=== PATIENT | male | born 1935 | race African-American/Black ===

== ENCOUNTER 2023-10-14 13:05 | Emergency (ER) | payer MEDICARE, OTHER ==
[~2023-10-14] VITALS: Ht 177.8 cm; Wt 108.9 kg
[~2023-10-14 13:05] MED LIST: GABA-534 PO; GLYB5TAB7 PO; INSU100C7 SQ; MECL-118 PO; VALS160T2 PO
[2023-10-14] MEDS: IV NS 0.9% 1,000 ML BAG IV ONE (13:54)
[2023-10-14 14:09] LABS: BASOPHILS % (AUTO) 0.1 % (0.0-2.0); EOSINOPHILS % (AUTO) 0.2 % (0.0-6.0); HEMATOCRIT 29 % (39-51); LYMPHOCYTES % (AUTO) 10.3 % (20.0-44.0); MEAN CORPUSCULAR HEMOGLOBIN 31 PG (26.0-33.0); MEAN CORPUSCULAR HGB CONC 34 g/dl (31.0-36.0); MEAN CORPUSCULAR VOLUME 92 fL (80-96); MONOCYTES # (AUTO) 0.7 K/uL (0.1-1.30); MONOCYTES % (AUTO) 7.9 % (2.0-12.0); NEUTROPHILS # (AUTO) 7.6 K/uL (1.8-8.9); NEUTROPHILS % (AUTO) 81.5 % (43.0-81.0); PLATELET COUNT (AUTO) 172 K/uL (150-450); RED BLOOD CELL COUNT(AUTO) 3.19 MIL/uL (4.5-6.0); RED CELL DISTRIBUTION WIDTH 13.3 % (11.5-15.0); WHITE BLOOD COUNT (AUTO) 9.3 K/uL (4.3-11.0)
[2023-10-14 14:26] LABS: ALANINE AMINOTRANSFERASE 23 U/L (12-78); ALBUMIN 2.7 g/dL (3.4-5.0); ALKALINE PHOSPHATASE 75 U/L (46-116); ASPARTATE AMINOTRANSFERASE 52 U/L (15-37); BILIRUBIN,DIRECT 0.2 mg/dL (0.0-0.2); BILIRUBIN,TOTAL 0.8 mg/dL (0.2-1.0); CALCIUM, SERUM 8.8 mg/dL (8.5-10.1); CARBON DIOXIDE 20 mmol/L (21-32); CHLORIDE 95 mmol/L (98-107); CREATININE 1.4 mg/dL (0.6-1.3); SODIUM SERUM 125 mmol/L (136-145); TOTAL PROTEIN, SERUM 6.9 g/dL (6.4-8.2); UREA NITROGEN, BLOOD 23 mg/dL (7-18)
[2023-10-14 14:27] LABS: LACTIC ACID 1.6 mmol/L (0.4-2.0)
[2023-10-14 14:28] LABS: GLUCOSE 488 mg/dL (74-106)
[2023-10-14] MEDS ORDERED: ENOXAPARIN SODIUM 100 MG/ML DISP.SYRIN SQ ONE (14:29)
[2023-10-14] MEDS: ENOXAPARIN SODIUM 100 MG/ML DISP.SYRIN SQ ONE (14:33)
[2023-10-14 15:00] VITALS: BP 96/67; TEMP 98.2; O2SAT 99
== END 2023-10-14 15:04 | disposition short-term general hospital (02) ==
LOC: ER 13:15
DX: I21.9 Acute myocardial infarction, unspecified (principal); E11.65 Type 2 diabetes mellitus with hyperglycemia; I10 Essential (primary) hypertension; Z79.4 Long term (current) use of insulin; Z79.899 Other long term (current) drug therapy; Z88.0 Allergy status to penicillin
CPT/HCPCS: 99291; 96360; 71045; 93005 ×2; 84145; 85025; 80048; 87040 ×2; 83605; 80076; 36415; 84484; 82962; 96372; J7030; J1650